=== PATIENT | female | born 1995 | race Caucasian/White ===

== ENCOUNTER → 2025-01-22 10:34 | Outpatient (CLI) | payer OTHER, SELFPAY ==
[2025-01-22 12:56] LABS: Hematocrit 40.4 % (36-46)
[2025-01-22 13:24] LABS: GTT (PREG) 1 Hour PP 50gm Dose 114 mg/dL (76-139)
[2025-01-24 08:36] LABS: Varicella IgG Antibody Reactive (Non Reactive)
== END ==
LOC: LAB 10:36
PROVIDERS: PCP Family Medicine; Referring Provider Student in an Organized Health Care Education/Training Program; Visit Provider Student in an Organized Health Care Education/Training Program
DX: Z34.00 Encounter for supervision of normal first pregnancy, unspecified trimester (principal); Z13.1 Encounter for screening for diabetes mellitus; Z13.0 Encounter for screening for diseases of the blood and blood-forming organs and certain disorders involving the immune mechanism
CPT/HCPCS: 36415; 82950; 85014; 85018; 86787; 86850; 86900; 86901

== ENCOUNTER → 2025-03-31 14:50 | Outpatient (CLI) | payer OTHER, SELFPAY ==
[2025-04-01 12:21] LABS: Strep Grp B PCR NEG for Grp B Strep
== END ==
PROVIDERS: PCP Family Medicine; Visit Provider Obstetrics & Gynecology
DX: Z34.93 Encounter for supervision of normal pregnancy, unspecified, third trimester (principal); Z3A.36 36 weeks gestation of pregnancy
CPT/HCPCS: 87653

== ENCOUNTER 2025-04-28 16:27 | Inpatient (IN) | payer OTHER, SELFPAY ==
--- NOTE | 2025-04-28 20:23 | PM.OBHP.IH.1 ---
OB HPI Date/Time Date of admission: 04/28/25 Date Patient Seen: 04/28/25 Time Patient Seen: 20:23 History of Present Condition Chief complaint: NST Date of Last Menstrual Period: 07/19/25 CHAS Calculator Estimated Delivery Date Method Current WG Current Estimate 04/25/25 LMP (Certain) 40w 3d Estimated Gestational Age (weeks): 40+3 : 1 Para: 0 Narrative: Farzana is a 29-year-old primigravida presents at 40+ 3 weeks gestational age with regular uterine contractions. She presented with a closed cervix and vertex high in the pelvis but over a period of 2 hours walking, she progressed to 5.5 cm and 60% effaced therefore is admitted in early labor. course has been unremarkable in dates are solid. Estimated weight is 7-7.5 lb. GBS is negative. care: good care Dating criteria OB: LMP confirmed by 1st trimester US Ultrasounds: normal 1st trimester US and normal mid trimester US Obstetrical complications: none Medical complications OB: none Preadmission Labs Last OB Lab Results: Blood Type A Positive 01/22/25, 12:06 Antibody Screen Negative 01/22/25, 12:06 Hct, (36-46) 40.4 % 01/22/25, 12:06 Hgb, (12.0-16.0) 14.0 g/dL 01/22/25, 12:06 VZV IgG Antibody, (Non Reactive) Reactive 01/22/25, 12:06 Glucose 1 Hr 50 gm, (76-139) 114 mg/dL 01/22/25, 11:00 Group B Strep (PCR) Neg for grp b strep 03/31/25, 14:50 -: Chlamydia screen: negative, Gonorrhea screen: negative and Urine: negative Genetic Screens: Quad screen: Normal, Cell-free DNA: Normal and Alpha-fetoprotein: Normal External Labs -: Urine: negative Prior (ies) Hx # Term Pregnancies: 0 Number of Living Children: 0 Evaluation Evaluation Baseline heart rate: 130 Variability: Marked (>25) monitor accelerations: Present Monitor Decelerations: Absent Contraction Frequency (minutes): 3 Uterine Contraction Intensity: Mild Category of Tracing: Reactive Status: Category l Dilation (cm): 5 Effacement (%): 60 Dilation: >/=5 cm Effacement: 60-70% station: -2 Position of cervix: mid Consistency: soft Jung score: 9 Comments: [facility] Medical History (Updated 03/09/25 @ 12:02 by Cira Calhoun DO) Irregular menstrual cycle (~2023) Herpes (~2019) Acne (~2023) Surgical History (Updated 02/01/25 @ 18:16 by Vandana Jimenez) Anesthesia [place] teeth extracted (~2015) Family History (Updated 02/01/25 @ 18:17 by Vandana Jimenez) Mother Hyperthyroidism Father History of hip replacement Grandfather Heart attack History of heart disease Grandmother Alzheimer's dementia Grandfather Cancer Grandmother Multiple sclerosis Aunt Hypothyroidism Social History marital status: number of children: 0 household members: spouse lives independently: Yes caregiver/support person: No housing: house pets and animals: Yes (dogs, chickens) education level: college (bachelor's degree) 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[employer]) current occupational exposures/hazards: No special francisco j needs: No travel history: recent (domestic/[place] only) seatbelt use: always helmet use: Yes water heater temp set < 120 deg: Yes working smoke detector in home: Yes fire extinguisher in home: Yes carbon monox detector in home: Yes firearms in home: Yes firearms unloaded and locked: Yes do you feel safe at home: Yes second hand exposure: No alcohol intake: former (~2-3 glasses wine/week when not ) substance use type: does not use during the past year weight has: remained stable well-balanced diet: daily or most days daily servings fruits/ve or more times/day caffeine: Yes (single cup coffee in AM) Type(s) of exercise: walking, aerobic, weight lifting and running frequency: 5-6 times per week Meds Home Medications and Allergies Home Medications ?Medication ?Instructions ?Recorded ?Confirmed ?Type [id number] 400 mcg-om3 35 mg-dha 25 tab PO 12/24/24 04/27/25 History mg-epa 5 mg-fish oil chewable tablet iron, carbonyl 25 mg PO DAILY 12/28/24 04/27/25 History valacyclovir 500 mg tablet 500 mg PO BID #60 tabs 03/31/25 04/27/25 Rx (Valtrex) Allergies Allergy/AdvReac Type Severity Reaction Status Date / Time No Known Drug Allergies Allergy Unverified 04/27/25 10:01 Review of Systems Review of Systems Narrative: Problem-specific ROS positives included in HPI OB Exam Vital signs Blood Pressure: 119/58 Pulse Rate: 71 Temperature: 98.2 F HENMT Head: normal to inspection, normocephalic and atraumatic Eyes General: appearance normal, both eyes and all related structures Resp Effort & Inspection: normal respiratory effort and able to speak in complete sentences Auscultation: clear to auscultation bilaterally Cardio Rate: regular rate Rhythm: regular rhythm Heart Sounds: S1 normal, S2 normal and no murmurs Extremities Lower extremity: Yes normal to inspection GI Inspection: normal to inspection Palpation: Yes soft and Yes no hepatosplenomegaly Uterus Location (Fundal Height): 36 Estimated Weight (lbs): 7 Assessment and Plan Assessment and Plan Assessment and Plan narrative: ASSESSMENT 1. Intrauterine , 40+ 3 gestational age 2. Latent phase labor 3. GBS negative status PLAN 1. Admit for labor and delivery 2. See admission orders Time-Based Coding :: [TOTAL MINUTES] spent with patient and on the chart (including review of chart, obtaining history, exam, reviewing outside data, placing orders, documenting exam and treatment plan, and counseling patient) on [DATE].
[2025-04-28 20:30] VITALS: BP 119/58; PULSE 71; TEMP 36.8
[2025-04-28 23:35] LABS: Alanine Aminotransferase 20 IU/L (<35); Albumin 3.7 g/dL (3.5-5.0); Albumin Globulin Ratio 1.2 (1.0-2.8); Alkaline Phosphatase 185 U/L (38-126); Blood Urea Nitrogen 11 mg/dL (7-17); Calcium 9.1 mg/dL (8.4-10.2); Carbon Dioxide 21 mmol/L (22-32); Chloride 106 mmol/L (98-107); Estimated Glomerular Filt Rate > 60 mL/min (>60); Globulin 3.0 g/dL (1.7-4.1); Glucose 110 mg/dL (70-99); HEMOLYSIS < 15 (0-50); Potassium 3.8 mmol/L (3.4-5.1); Sodium 134 mmol/L (137-145); Total Protein 6.7 g/dL (6.3-8.2); Uric Acid 5.2 mg/dL (2.5-6.2)
[2025-04-28 23:40] LABS: Add Manual Diff / Slide Review NO; Hematocrit 40.8 % (36-46); Hemoglobin 13.9 g/dL (12.0-16.0); Lymphocytes Absolute Auto 2700 /uL (1100-4500); Mean Corpuscular HGB Conc 34.0 % (30-36); Mean Corpuscular Hemoglobin 31.3 PG (26-34); Mean Corpuscular Volume 92.2 fL (80-100); Platelet Count 190 X10^3/uL (150-400)
[2025-04-28 23:50] LABS: Magnesium 2.0 mg/dL (1.6-2.3)
[2025-04-29] MEDS: LACTATED RINGERS 1,000 ML 100 ML IV ×2 (01:28→05:30)
--- NOTE | 2025-04-29 02:52 | PM.OBPNLAB ---
Date/Time Date Patient Seen: 04/29/25 Time Patient Seen: 02:52 Pain Control Pain control: epidural Pelvic Exam Dilation (cm): 10 Effacement (%): 100 station: +1 Amniotic membrane status: Ruptured (SROM clear) Contractions Contractions on admission: regular Monitor mode: External Contraction pattern: Regular Contraction phase: Resting Contraction intensity: Strong/Firm Status status: Category l Heart Rate Baseline: 120 Monitor Accelerations: Present Monitor Decelerations: Early and Episodic Monitor Variability: Moderate Assessment and Plan Assessment: active labor Plan: continuous present management Comments: CHIQUI/SBA in place with good relief. C/C/+1-2, LUDIVINA. Will begin pushing.
--- NOTE | 2025-04-29 02:56 | P.PCN_ITS ---
Regional Block Pre-procedure Procedure: Continuous Lumbar Epidural for L&D Attending OB provider: Esvin Dobbins PMH/ROS narrative: Term here in active labor requesting CHIQUI for labor pain. PSH/Anesthesia history narrative: See pre-anesthesia eval. ASA Class: II Labs: Hct 40.8 % (36-46) 04/28/25 23:04 Plt Count 190 X10^3/uL (150-400) 04/28/25 23:04 Medications: Current Medications Generic Name Dose Route Start Last Admin Trade Name Freq PRN Reason Stop Dose Admin Butorphanol Tartrate 0.5 mg 04/29/25 02:54 Butorphanol 1 Mg/Ml Vial IV 04/30/25 02:54 Q3HR PRN PRURITUS Calcium Carbonate 1,000 mg 04/28/25 20:41 Calcium Carbonate 500 Mg Tab PO Q2HR PRN Dyspepsia Carboprost Tromethamine 250 mcg 04/28/25 20:41 Carboprost 250 Mcg/Ml Ampul IM Q90M PRN Bleeding Diphenhydramine HCl 25 mg 04/29/25 02:54 Diphenhydramine 50 Mg/Ml Vial IV 04/30/25 02:54 Q3HR PRN PRURITUS Diphenhydramine HCl 25 mg 04/29/25 02:54 Diphenhydramine 50 Mg/Ml Vial IV Q10M PRN Pruritis Ephedrine Sulfate 10 mg 04/29/25 02:54 Ephedrine 50 Mg/Ml Vial IV Q5M PRN Blood pressure decrease more than 20% of baseline. Lactated Ringer's 1,000 mls @ 100 mls/hr 04/28/25 20:45 04/29/25 01:28 Lactated Ringers IV 04/29/25 06:44 100 mls/hr CONT ROLANDO Administration Oxytocin/Lactated Ringer's 30 unit in 500 mls @ 200 mls/hr 04/28/25 20:41 Oxytocin Premix IV CONT PRN Bleeding Protocol Tranexamic Acid 1,000 mg/ 100 mls @ 600 mls/hr 04/28/25 20:41 Sodium Chloride IV NOW PRN Bleeding FENT 2MCG/ML BUPIV 0.125% EPI 200 mcg in 100 mls @ 10 mls/hr 04/29/25 02:44 Fentanyl/Bupiv/Ns 2mcg/Ml - 0.125% EPIDURAL CONT ROLANDO Lidocaine HCl 20 ml 04/28/25 20:41 Lidocaine 1% 20 Ml INJ INTRA-OP PRN Post Delivery Methylergonovine Maleate 0.2 mg 04/28/25 20:41 Methylergonovine 0.2 Mg Tablet PO Q6HR PRN Heavy Bleeding Methylergonovine Maleate 0.2 mg 04/28/25 20:41 Methylergonovine 0.2 Mg/Ml Vial IM NOW PRN Bleeding Metoclopramide HCl 10 mg 04/29/25 02:54 Metoclopramide 10 Mg/2 Ml Inj IV 04/30/25 02:54 Q4H PRN Nausea Mineral Oil 30 ml 04/28/25 20:41 Mineral Oil 30 Ml Udc TOP PRN PRN Version Misoprostol 800 mcg 04/28/25 20:41 Misoprostol 200 Mcg Tablet HI NOW PRN Bleeding Misoprostol 400 mcg 04/28/25 20:41 Misoprostol 200 Mcg Tablet SL NOW PRN Bleeding Nalbuphine HCl 5 mg 04/29/25 02:54 Nalbuphine 20 Mg/Ml Ampul IV Q6H PRN PRURITIS Nalbuphine HCl 2.5 mg 04/29/25 02:54 Nalbuphine 20 Mg/Ml Ampul IV Q10M PRN Pruritis Naloxone HCl 0.2 mg 04/28/25 20:41 Naloxone 0.4 Mg/Ml Vial IV Q2MIN PRN Opiate Reversal Naloxone HCl 0.4 mg 04/29/25 02:54 Naloxone 0.4 Mg/Ml Vial IV Q2MIN PRN Opiate Reversal Ondansetron HCl 4 mg 04/28/25 20:41 Ondansetron 4 Mg/2 Ml Inj IV Q4HR PRN Nausea And Vomiting Ondansetron HCl 4 mg 04/29/25 02:54 Ondansetron 4 Mg/2 Ml Inj IV 04/30/25 02:54 Q6HR PRN Nausea Oxytocin 10 unit 04/28/25 20:41 Oxytocin 10 Unit/Ml Vial IM NOW PRN Bleeding Allergies: Allergies Allergy/AdvReac Type Severity Reaction Status Date / Time No Known Drug Allergies Allergy Unverified 04/27/25 10:01 Procedure Insertion date: 04/29/25 Insertion time: 02:31 Prep/Local: 1% lidocaine (5mL to interspace. CHG to back for skin prep) Interspace: L3/4 Patient position: sitting Needle: 18 gauge Hustead (+ 27g Pencan through hustead for CSE with 1mL 0.25% MPF bupivacaine instilled following +CSF return) Loss of resistance with: saline ANGEL at (cm): 7 Catheter placed at SKIN (cm): 12 Catheter in SPACE (cm): 5 Sensory level: T10 Insertion: No CSF, No Blood, No Paresthesia with insertion, No Paresthesia with injection and No Test dose reaction Initial Medications TEST DOSE time: 02:32 TEST DOSE: 1.5% lidocaine with epinephrine 1:200k (mL): 3 BOLUS DOSE time: 02:44 BOLUS DOSE (mL): 10 BOLUS DOSE med: other (infusate) Infusion INFUSION: 0.125% bupivacaine and with fentanyl 2 mcg/mL Initial rate (mL/hr): 10 Post-procedure Anesthesia date START: 04/29/25 Anesthesia time START: 02:23 Anesthesia date END: 04/29/25 Anesthesia time END: 04:58 Post-procedure Anesthesia Assessment: Yes CV function: HR/BP stable, Yes Resp f unction: RR/sat/airway adequate, Yes Post-op hydration adequate, Yes Pain control adequate, Yes Nausea & vomiting absent, Yes Temperature > 36 C, Yes Mental status appropriate and No Anesthesia complications
[2025-04-29] MEDS: OXYTOCIN PREMIX 30 UNIT/500 ML PLAST..BAG 200 UNIT IV (04:55)
--- NOTE | 2025-04-29 05:15 | PM.OBPRVD ---
Labor & Delivery Delivery date: 04/29/25 Delivery Time: 04:43 Intrapartal Events: None Cervical ripening method: none Induction method: none Delivery monitor: external FHT and external uterine Route of delivery: Episiotomy description: None L&D Laceration Description: Perineal - 2nd Degree Delivery repair: chromic Estimated blood loss (mL): 250 Anesthesia Type: Spinal and Epidural Complications: None Narrative: Following 2 hour and 45 minute 2nd stage, Farzana delivered spontaneously over an intact perineum viable male with Apgars of 9/9 and a weight of 3101 g (6 lb 13.4 oz). A loose nuchal cord was encountered which did not require reduction and no shoulder dystocia was encountered during the delivery process. Skin to skin contact was initiated immediately and delayed cord clamping performed. Once the umbilical cord was doubly clamped and cut, a specimen of cord blood was obtained for routine studies. The placenta was then easily delivered with gentle cord traction and suprapubic countertraction. Inspection of the placenta revealed a three-vessel cord with central insertion and intact cotyledons. Intravenous Pitocin was initiated immediately after delivery of the placenta and bleeding was rapidly brought under controlled with excellent uterine tone. Inspection of the perineum showed a simple midline second-degree perineal laceration which was repaired in the usual manner with 2-0 chromic catgut suture. Sponge, instrument, and needle counts were correct at the completion of the delivery process which was well tolerated by both mother and baby. [place] Baby 1: gender: Male Presentation: vertex Position: Left Occiput Anterior Placenta delivery description: Spontaneous Cord Vessel Description: 3 Vessels score (1 min): 9 score (5 min): 9 weight: 6 lb 13.385 oz Plan for aftercare: Routine care
[2025-04-29] MEDS: LANOLIN OINT 7 GM 1 APPLIC TOP (06:53)
[2025-04-29] MEDS: DERMOPLAST SPRAY 20% 60 ML 1 SPRAY TOP (06:53)
[2025-04-29] MEDS: IBUPROFEN 600 MG TABLET PO (21:23)
--- NOTE | 2025-04-30 07:30 | P.DS_ITS ---
Discharge Providers Provider Date of admission: 04/28/25 16:27 Discharge Date: 04/30/25 Primary care physician: Cheo Lui MD Consults: 04/29/25 06:22 Consult to Human Resources Office Manager Routine Comment: Discharge provider: Cira Calhoun DO Summary Hospital Course Date Patient Seen: 04/30/25 Time Patient Seen: 07:15 Diagnoses: Term gestation at 40+4wks Maternal history of HSV Hospital Course: 29yo [id number] admitted at 40+3wks in active labor. She progressed to an uncomplicated spontaneous vaginal delivery, productive of a viable male . Her course was unremarkable. On day #1, she was ambulating, tolerating regular diet, voiding spontaneously with minimal lochia. Her pain was well controlled with oral medications, thus she was discharged to home on day #1. Peripartum Data Infant Delivery Method: Natural Vaginal Laceration Description: Perineal - 2nd Degree Procedures: External monitoring Epidural anesthesia Vaginal delivery Obstetrical laceration repair complications: none [place] 1: Gender: Male Disposition of : home Discharge Diagnosis (1) Normal vaginal delivery: Status: Acute (2) Single live : Status: Acute (3) Herpes virus infection in mother during : Status: Acute (4) 40 weeks gestation of : Status: Acute Status at Discharge Cognitive/behavioral status at discharge: oriented Functional status at discharge: independent ambulation Overall status at discharge: patient is progressing back to baseline Time Spent with Patient Time attestation: Total time spent providing and/or coordinating discharge services: Time spent: Less than 30 minutes Objective Labs 04/28/25 23:04 04/28/25 23:00 Labs: Laboratory Results - last 24 hr 04/28/25 20:41 U Random Total Protein TNP Urine Creatinine TNP Protein/Creatinin Ratio TNP Exam Vital Signs (past 8 hours): vitals reviewed in OBIX, within normal parameters Const General: cooperative, healthy appearing, comfortable and No acute distress Resp Effort & Inspection: normal respiratory effort GI Inspection: normal to inspection Other: fundus firm and nontender at U-2 Skin General: no rashes or lesions noted Neuro General: patient alert and patient awake Extrem General: normal to inspection, no pedal edema and no calf tenderness Psych Mood: congruent mood Affect: normal affect Discharge Plan Discharge Plan Patient Disposition: Home Provider Discharge Comment: Take ibuprofen 600mg every 6hrs and/or acetaminophen 650mg every 6hrs as needed for pain. Avoid placing anything in the vagina for 6 weeks. Please review the written instructions you received when you were discharged from the hospital. Your follow-up appointment will be scheduled for 6 weeks after delivery and we look forward to seeing you then. If however in the meanwhile you have any issues, concerns, or questions, please contact the office either by phone at [phone], or via the patient portal. Discharge orders & Medications Prescriptions: Continued [id number] oil 400 mcg-35 mg -25 mg-5 mg tablet,chewable PO iron, carbonyl 25 mg iron tablet 25 mg PO DAILY Discontinued valacyclovir [Valtrex] 500 mg tablet 500 mg PO BID Qty: 60 3RF Follow up/Referrals: Cira Calhoun DO [Physician, BUSINESS LOAN PROCESSOR] Referral Note: Please follow up for a 2 week telehealth on May 11 at 4:30pm. Please follow up with Dr. Calhoun for a 6 week in person visit on Saturday, June 07 at 10:30am. Discharge Health Status Multidrug resistant organism: No MDRO Diet/Activity/Treatments Diet: Diet as Tolerated Activity: As tolerated Skin/Wound/Dressing Care Skin care: You may shower normally. Report to your healthcare provider any signs of infection, such as:: chills, fever, increased pain, unusual drainage and unusual redness Visit Report/Discharge Packet Instructions: DI for Labor and Delivery, Vaginal , DI for and Nipple Soreness Stand Alone Forms: Patient Portal/API, Stroke Signs & Symptoms Discharge Data Primary Care Provider: Cheo Lui
[2025-04-30 09:00] VITALS: BP 114/73; PULSE 66; RESP 15; TEMP 36.8
== END 2025-04-30 09:20 | disposition home or self-care (01) | DRG 807 ==
PROVIDERS: Admitting Provider Student in an Organized Health Care Education/Training Program; PCP Family Medicine; Referring Provider Student in an Organized Health Care Education/Training Program; Visit Provider Student in an Organized Health Care Education/Training Program
DX: O98.52 Other viral diseases complicating childbirth (principal); Z37.0 Single live birth; O70.1 Second degree perineal laceration during delivery; O76 Abnormality in fetal heart rate and rhythm complicating labor and delivery; B00.9 Herpesviral infection, unspecified; Z3A.40 40 weeks gestation of pregnancy
CPT/HCPCS: 36415; 59025; 59050; 59410; 80053; 83735; 84550; 85025; 86850; 86900; 86901; G0379; J2590